=== PATIENT | female | born 1955 | race Caucasian/White ===

== ENCOUNTER 2021-01-13 19:21 | Emergency (ER) | payer SELFPAY ==
[~2021-01-13] VITALS: Ht 152 cm; Wt 43.0 kg
[2021-01-13] MEDS ORDERED: ATROPINE INJECTION 1 MG/10 ML SYR (ABBOTT) INJ ONE (19:28)
[2021-01-13] MEDS ORDERED: EPINEPHrine 0.1 MG/ML 10 ML (HOSPIRA) SYR IJ ONE (19:28)
[2021-01-13] MEDS ORDERED: ETOMIDATE IV SOLN 20 MG/10 ML VIAL IV ONE (19:28)
--- NOTE | 2021-01-13 19:42 | ED Respiratory ---
General Stated Complaint: SOB, POSSIBLE STROKE Source: patient, EMS Exam Limitations: clinical condition History of Present Illness Date Seen by Provider: Jan 13, 2021 Time Seen by Provider: 19:28 Initial Comments Patient is a 65-year-old who presents by EMS today with a chief complaint of respiratory distress. Initially the call was made for possible stroke. Patient and EMS report that the patient has had increasing cough and congestion and shortness of breath for the last couple of days. [place] and has not really established care. She has been seen at a clinic in [facility]. Patient has a long history of COPD/respiratory disease and was on oxygen at her previous home but has not been on oxygen since arriving in [place]. Patient continues to smoke. EMS reports the house was very disheveled and unkempt. Patient states that she has a headache, congestion, shortness of breath and cough. She has been having diarrhea. She is not Covid vaccinated. She does seem a little confused but on 5 L of oxygen her SPO2 is only 90% I suspect her confusion is more likely related to her degree of hypoxia. She is moving all of her extremities equally with good strength and has no numbness. No other obvious neurologic deficits are noted. EMS states that she has had a stroke in the past however. EMS also reports a temperature of 101. Patient is not a good historian with review of her past medical history family history or social history. She is re ally unable to provide much of a review of systems other than to endorse the above-stated complaints. All other review of systems reviewed and negative except as stated. Timing/Duration: yesterday Severity: severe Modifying Factors: Improves With Albuterol Inhaler Associated Symptoms: cough, fever/chills, muscle aches, nasal congestion, shortness of breath Allergies and Home Medications Allergies Coded Allergies: No Known Drug Allergies (Unverified , 01/13/21) Patient Home Medication List Home Medication List Reviewed: Yes Review of Systems Review of Systems Constitutional: see HPI Respiratory: cough, phlegm, short of breath Cardiovascular: no symptoms reported Gastrointestinal: diarrhea, nausea Genitourinary: no symptoms reported Musculoskeletal: muscle cramps Skin: no symptoms reported Psychiatric/Neurological: Headache Hematologic/Lymphatic: No Symptoms Reported All Other Systems Reviewed Negative Unless Noted: Yes Physical Exam Vital Signs - First Documented 01/13/21 01/13/21 19:21 22:26 Temp 38.6 Pulse 141 Resp 34 B/P (MAP) 139/88 (105) Pulse Ox 95 O2 Delivery Nasal Cannula O2 Flow Rate 5.00 FiO2 100 Capillary Refill : Height: '" Weight: lbs. oz. kg; BMI Method: General Appearance: WD/WN, moderate distress Eyes: Bilateral Eye Normal Inspection, Bilateral Eye PERRL, Bilateral Eye EOMI HEENT: other (Dry oral mucosa) Neck: normal inspection Respiratory: other (Increased work of breathing with tachypnea, diminished breath sounds throughout, scattered rhonchi noted. Patient's oxygen saturations are 90% on 5 L per nasal cannula at this time) Cardiovascular: tachycardia Gastrointestinal: normal bowel sounds, non tender, soft Extremities: normal range of motion, non-tender, normal inspection, no pedal edema, no calf tenderness Neurologic/Psychiatric: no motor/sensory deficits, alert, normal mood/affect, other (Oriented to self, birthdate. Unable to state where she is or what year it is) Skin: normal color, warm/dry Focused Exam Lactate Level 01/13/21 19:25: Lactic Acid Level 1.81 Lactic Acid Level Laboratory Tests Test 01/13/21 19:25 Lactic Acid Level 1.81 MMOL/L (0.50-2.00) Progress/Results/Core Measures Suspected Sepsis Recent Fever Within 48 Hours: Yes Infection Criteria Present: Suspected New Infection New/Unexplained Altered Menta: Yes Within 3hrs of presentation: Admin fluids, Blood cultures prior to ABX's, Lactate level SIRS Temperature: Pulse: Respiratory Rate: Laboratory Tests 01/13/21 19:25: White Blood Count 27.5H Blood Pressure / Mean: 01/13/21 19:25: Lactic Acid Level 1.81 Laboratory Tests 01/13/21 19:25: Creatinine 0.79, INR Comment 1.3, Platelet Count 390, Total Bilirubin 1.3H Results/Orders Lab Results Laboratory Tests Test 01/13/21 19:20 01/13/21 19:25 01/13/21 20:10 Range/Units Influenza Type A (RT-PCR) Not Detected Not Detecte Influenza Type B (RT-PCR) Not Detected Not Detecte SARS-CoV-2 RNA (RT-PCR) Not Detected Not Detecte White Blood Count 27.5 H 4.3-11.0 10^3/uL Red Blood Count 4.20 3.80-5.11 10^6/uL Hemoglobin 13.3 11.5-16.0 g/dL Hematocrit 39 35-52 % Mean Corpuscular Volume 93 80-99 fL Mean Corpuscular Hemoglobin 32 25-34 pg Mean Corpuscular Hemoglobin Concent 34 32-36 g/dL Red Cell Distribution Width 12.0 10.0-14.5 % Platelet Count 390 130-400 10^3/uL Mean Platelet Volume 9.6 9.0-12.2 fL Immature Granulocyte % (Auto) 6 % Neutrophils (%) (Auto) 84 H 42-75 % Lymphocytes (%) (Auto) 3 L 12-44 % Monocytes (%) (Auto) 7 0-12 % Eosinophils (%) (Auto) 0 0-10 % Basophils (%) (Auto) 0 0-10 % Neutrophils # (Auto) 23.2 H 1.8-7.8 10^3/uL Lymphocytes # (Auto) 0.7 L 1.0-4.0 10^3/uL Monocytes # (Auto) 1.8 H 0.0-1.0 10^3/uL Eosinophils # (Auto) 0.0 0.0-0.3 10^3/uL Basophils # (Auto) 0.1 0.0-0.1 10^3/uL Immature Granulocyte # (Auto) 1.7 H 0.0-0.1 10^3/uL Neutrophils % (Manual) 84 % Lymphocytes % (Manual) 5 % Monocytes % (Manual) 8 % Metamyelocytes % 1 % Band Neutrophils 2 % Blood Morphology Comment NORMAL Prothrombin Time 16.5 H 12.2-14.7 SEC INR Comment 1.3 0.8-1.4 Activated Partial Thromboplast Time 34 24-35 SEC D-Dimer 1.33 H 0.00-0.49 UG/ML Sodium Level 129 L 135-145 MMOL/L Potassium Level 4.1 3.6-5.0 MMOL/L Chloride Level 96 L 98-107 MMOL/L Carbon Dioxide Level 19 L 21-32 MMOL/L Anion Gap 14 5-14 MMOL/L Blood Urea Nitrogen 24 H 7-18 MG/DL Creatinine 0.79 0.60-1.30 MG/DL Estimat Glomerular Filtration Rate 73 BUN/Creatinine Ratio 30 Glucose Level 174 H 70-105 MG/DL Lactic Acid Level 1.81 0.50-2.00 MMOL/L Calcium Level 10.2 H 8.5-10.1 MG/DL Corrected Calcium 10.5 H 8.5-10.1 MG/DL Total Bilirubin 1.3 H 0.1-1.0 MG/DL Aspartate Amino Transf (AST/SGOT) 19 5-34 U/L Alanine Aminotransferase (ALT/SGPT) 19 0-55 U/L Alkaline Phosphatase 81 40-136 U/L C-Reactive Protein High Sensitivity 34.90 H 0.00-0.50 MG/DL Total Protein 7.6 6.4-8.2 GM/DL Albumin 3.6 3.2-4.5 GM/DL Procalcitonin 4.23 H <0.10 NG/ML Urine Color YELLOW Urine Clarity SL CLOUDY Urine pH 6.0 5-9 Urine Specific [place] 1.025 H 1.016-1.022 Urine Protein 2+ H NEGATIVE Urine Glucose (UA) NEGATIVE NEGATIVE Urine Ketones 1+ H NEGATIVE Urine Nitrite NEGATIVE NEGATIVE Urine Bilirubin NEGATIVE NEGATIVE Urine Urobilinogen 1.0 < = 1.0 MG/DL Urine Leukocyte Esterase NEGATIVE NEGATIVE Urine RBC (Auto) TRACE-I NEGATIVE Urine RBC 0-2 /HPF Urine WBC 0-2 /HPF Urine Crystals PRESENT H /LPF Urine Amorphous Sediment RARE NAVJOT URATES H /LPF Urine Bacteria TRACE /HPF Urine Casts NONE /LPF Urine Mucus SMALL H /LPF Urine Culture Indicated NO Blood Gas Puncture Site R RADIAL Blood Gas Patient Temperature 101 Arterial Blood pH 7.47 H 7.37-7.43 Arterial Blood Partial Pressure CO2 28 L 35-45 MMHG Arterial Blood Partial Pressure O2 52 L 79-93 MMHG Arterial Blood HCO3 20 L 23-27 MMOL/L Arterial Blood Total CO2 20.4 L 21.0-31.0 MMOL/L Arterial Blood Oxygen Saturation 83 L 94-100 % Arterial Blood Base Excess -3.3 L -2.5-2.5 MMOL/L Edwin Test NA Blood Gas Ventilator Setting NO Blood Gas Inspired Oxygen 5 L My Orders Orders - SADIA DAVIS MD Cbc With Automated Diff (01/13/21 19:36) Comprehensive Metabolic Panel (01/13/21 19:36) Blood Culture (01/13/21 19:36) Sputum Culture (01/13/21 19:36) Urinalysis (01/13/21 19:36) Urine Culture (01/13/21 19:36) Protime With Inr (01/13/21 19:36) Partial Thromboplastin Time (01/13/21 19:36) Chest 1 View, Ap/Pa Only (01/13/21 19:36) Ed Iv/Invasive Line Start (01/13/21 19:36) Ed Iv/Invasive Line Start (01/13/21 19:36) Vital Signs Adult Sepsis Patie Q15M (01/13/21 19:36) O2 (01/13/21 19:36) Remove Rings In Anticipation O (01/13/21 19:36) Lactic Acid Analyzer (01/13/21 19:36) Procalcitonin (Pct) (01/13/21 19:36) Arterial Blood Gas (01/13/21 19:36) Hs C Reactive Protein (01/13/21 19:36) Fibrin Degradation Products (01/13/21 19:36) Communication For Respiratory (01/13/21 19:38) Ns Iv 1000 Ml (Sodium Chloride 0.9%) (01/13/21 19:45) Acetaminophen Tablet (Tylenol Tablet) (01/13/21 19:45) Morphine Injection (Morphine Injection (01/13/21 20:06) Morphine Injection (Morphine Injection (01/13/21 20:08) Manual Differential (01/13/21 19:25) Covid 19 Inhouse Test (01/13/21 20:19) Influenza A And B By Pcr (01/13/21 20:19) Lorazepam Injection (Ativan Injection) (01/13/21 20:30) Lorazepam Injection (Ativan Injection) (01/13/21 20:24) Cefepime Injection (Maxipime Injection) (01/13/21 21:00) Ns Iv 1000 Ml (Sodium Chloride 0.9%) (01/13/21 21:00) Lorazepam Injection (Ativan Injection) (01/13/21 21:00) Aspirin Suppository (Aspirin Suppository (01/13/21 21:24) Aspirin Chewable Tablet (Baby Aspirin Ch (01/13/21 21:33) Epinephrine 1 Mg Injection (Adrenalin I (01/13/21 21:44) Ns (Ivpb) (Sodium Chloride 0.9%) (01/13/21 21:44) Epinephrine 1 Mg Injection (Adrenalin I (01/13/21 21:44) Medications Given in ED Current Medications Medications Dose Ordered Sig/Volodymyr Route Start Time Stop Time Status Last Admin Dose Admin Acetaminophen 1,000 mg ONCE ONCE PO 01/13/21 19:45 01/13/21 19:46 DC 01/13/21 20:30 1,000 MG Lorazepam 0.5 mg Q8HR PRN IVP 01/13/21 20:30 01/13/21 20:28 0.5 MG Vital Signs/I&O 01/13/21 01/13/21 01/13/21 01/13/21 19:21 19:22 20:19 20:30 Temp 38.6 38.4 Pulse 141 146 Resp 34 34 B/P (MAP) 139/88 (105) Pulse Ox 95 95 95 O2 Delivery Nasal Cannula Nasal Cannula O2 Flow Rate 5.00 5.00 70.00 01/13/21 22:26 Pulse 89 Resp 18 Pulse Ox 85 FiO2 100 Capillary Refill : Progress Note : Time: 20:51 Progress Note daughter Lissa Cameron [phone]; attemped to call. no answer Notified about 2109 of the patient's increasing agitation. Remains tachycardic in the 140s unable to obtain a pulse ox. Patient was given a little bit more Ativan seemed to calm down and then noted to bradycardia significantly from her 140s down into the 80s with increasing ST segments on telemetry. Patient subsequently respiratory and cardiac arrested. Immediately CPR was started patient was urgently intubated with a 7.5 ET tube under direct vision laryngoscopy.. Bilateral breath sounds auscultated CPR continued for about 3 to 4 minutes with 1 epinephrine given. We had return of circulation and a pulse in the 140s pressure of 110 systolic. Patient was given a fluid bolus. EKG was obtained and showed ST segment elevation inferiorly and anteriorly. I contacted Dr. Brown who is on-call for cardiology. He stated he would be into the emergency department to evaluate the patient. I also discussed the case with Dr. Singh. Patient subsequently bradycardia down again into a PEA rhythm. CPR started again. Multiple recurrent episodes of CPR with spontaneous return of circulation. Finally at about 0 the patient again lost a pulse about 15 minutes of CPR, patient was noted to be in a heart block. Multiple rounds of epinephrine, also a milligram of atropine were given under the direction of Dr. Brown as well as an epi drip had been started maxed out at 10 mics. I had multiple discussions with the daughter regarding ongoing resuscitative efforts. Eventually the daughter decided to discontinue CPR. Time of was called at 2201. ECG Initial ECG Impression Date: Jan 13, 2021 Initial ECG Impression Time: 21:22 Initial ECG Rate: 157 Initial ECG Rhythm: Normal Sinus Initial ECG Intervals qtc 515 Comment STEMI, ST segment elevation inferiorly and V3-5 Diagnostic Imaging Diagonstic Imaging: Xray Plain Films/CT/US/NM/MRI: chest Comments single view chest interpreted by me, large left upper lobe infiltrate Critical Care Note Critical Care Start Time: 19:28 Stop Time: 21:34 Total Time (minutes) 90 minutes critical care time in the evaluation and management of this patient with sepsis, large left upper lobe pneumonia. Time includes fluid resuscitation also includes management of subsequent respiratory and cardiac arrest with about 3 to 5 minutes of CPR, 1 mg of epinephrine, chest compressions and intubation. Critical care management time does not include the procedure. Also discussion with family members, discussion with cardiology services as well as discussion with Dr. Singh admitting physician and eICU. Departure Communication (Admissions) Time/Spoke to Admitting Phy: 21:[address] Singh, accepts patient for admission, requests EICU consult Time/Spoke to Consulting Phy: 21:[address] Brown made him aware of STEMI Impression Primary Impression: Sepsis Qualified Codes: A41.9 - Sepsis, unspecified organism; R65.20 - Severe sepsis without septic shock; J96.01 - Acute respiratory failure with hypoxia Additional Impressions: Pneumonia Qualified Codes: J18.9 - Pneumonia, unspecified organism Cardiac arrest STEMI (ST elevation myocardial infarction) Qualified Codes: I21.3 - ST elevation (STEMI) myocardial infarction of unspecified site Disposition: 20 Condition: Admissions Decision to Admit Reason: Admit from ER (General) Decision to Admit/Date: Jan 13, 2021 Time/Decision to Admit Time: 21:34 SADIA DAVIS MD Jan 13, 2021 19:42
[2021-01-13] MEDS ORDERED: ACETAMINOPHEN 500 MG TAB (TYLENOL) PO ONE (19:45)
[2021-01-13] MEDS ORDERED: NS IV 1000 ML 1,000 ML IV SCH ×2 (19:45→21:00)
[2021-01-13] MEDS ORDERED: morphine INJ 10 MG/ML 1ML (SYR OR VIAL) IVP STA (20:06)
[2021-01-13] MEDS ORDERED: morphine INJ 10 MG/ML 1ML (SYR OR VIAL) ONE (20:08)
[2021-01-13 20:12] LABS: BASOPHILS # (AUTO) 0.1 10^3/uL (0.0-0.1); BASOPHILS % (AUTO) 0 % (0-10); EOSINOPHILS % (AUTO) 0 % (0-10); HEMATOCRIT 39 % (35-52); HEMOGLOBIN 13.3 g/dL (11.5-16.0); LYMPHOCYTES # (AUTO) 0.7 10^3/uL (1.0-4.0); LYMPHOCYTES % (AUTO) 3 % (12-44); MEAN CORPUSCULAR HEMOGLOBIN 32 pg (25-34); MEAN CORPUSCULAR HGB CONC 34 g/dL (32-36); MEAN CORPUSCULAR VOLUME 93 fL (80-99); MEAN PLATELET VOLUME 9.6 fL (9.0-12.2); MONOCYTES # (AUTO) 1.8 10^3/uL (0.0-1.0); MONOCYTES % (AUTO) 7 % (0-12); NEUTROPHILS # (AUTO) 23.2 10^3/uL (1.8-7.8); NEUTROPHILS % (AUTO) 84 % (42-75); PLATELET COUNT 390 10^3/uL (130-400); WHITE BLOOD COUNT 27.5 10^3/uL (4.3-11.0)
[2021-01-13 20:19] VITALS: BP 124/79
[2021-01-13 20:19] LABS: FIBRIN DEGRADATION PRODUCTS 1.33 UG/ML (0.00-0.49); INR 1.3 (0.8-1.4); PROTHROMBIN TIME PATIENT 16.5 SEC (12.2-14.7)
[2021-01-13] MEDS ORDERED: LORazepam INJ 2 MG/ML (ATIVAN) VIAL ONE (20:24)
[2021-01-13 20:28] LABS: BILIRUBIN,URINE NEGATIVE (NEGATIVE); CLARITY,URINE SL CLOUDY; COLOR,URINE YELLOW; GLUCOSE, URINE (UA) NEGATIVE (NEGATIVE); KETONES,URINE 1+ (NEGATIVE); LEUKOCYTE ESTERASE ,URINE NEGATIVE (NEGATIVE); NITRITE,URINE NEGATIVE (NEGATIVE); PROTEIN,URINE 2+ (NEGATIVE)
[2021-01-13] MEDS ORDERED: LORazepam INJ 2 MG/ML (ATIVAN) VIAL IVP PRN ×2 (20:30→21:00)
[2021-01-13 20:31] LABS: ABG BASE EXCESS -3.3 MMOL/L (-2.5-2.5); ABG OXYGEN SATURATION 83 % (94-100); ABG PCO2 28 MMHG (35-45); ABG PH 7.47 (7.37-7.43); ABG PO2 52 MMHG (79-93); ABG TCO2 20.4 MMOL/L (21.0-31.0)
[2021-01-13 20:38] LABS: INSPIRED O2 5 L; PATIENT TEMP 101; VENTILATOR NO
[2021-01-13 20:39] LABS: ALBUMIN 3.6 GM/DL (3.2-4.5); BILIRUBIN,TOTAL 1.3 MG/DL (0.1-1.0); CALCIUM 10.2 MG/DL (8.5-10.1); CREATININE SERUM 0.79 MG/DL (0.60-1.30); POTASSIUM 4.1 MMOL/L (3.6-5.0); TOTAL PROTEIN 7.6 GM/DL (6.4-8.2)
--- NOTE | 2021-01-13 20:59 | Diagnostic Imaging Report ---
INDICATION: Shortness of breath EXAM: Portable chest at 8:47 PM FINDINGS: There is an infiltrate present in the central portion of the left lung. There are emphysematous changes in both lungs. IMPRESSION: 1. COPD. 2. Left perihilar pneumonia. Dictated by: Dictated on workstation # [id number]
[2021-01-13] MEDS ORDERED: CEFEPIME INJECTION 2,000 MG in WATER (STERILE) FOR INJECTION 20 ML IV ONE (21:00)
[2021-01-13 21:07] LABS: AMORPHOUS SEDIMENT,UR RARE AMOR URATES /LPF; BACTERIA,URINE TRACE /HPF; RBC,URINE 0-2 /HPF; WBC,URINE 0-2 /HPF
[2021-01-13 21:12] LABS: BAND NEUTROPHILS 2 %; LYMPHOCYTES % (MANUAL) 5 %; METAMYELOCYTES % 1 %; MONOCYTES % (MANUAL) 8 %; NEUTROPHILS % (MANUAL) 84 %; RBC MORPH NORMAL
[2021-01-13] MEDS ORDERED: ASPIRIN 300 MG (5 GR) SUPPOSITORY PR STA (21:24)
[2021-01-13] MEDS ORDERED: ASPIRIN 81 MG CHEW (CHILDREN'S ASA) ONE (21:33)
[2021-01-13] MEDS ORDERED: NS (IVPB) 250 ML ONE (21:44)
[2021-01-13] MEDS ORDERED: EPINEPHrine INJECTION 1 MG/ML AMP ONE ×2 (21:44)
[2021-01-13] MEDS ORDERED: CEFEPIME 2 GM/20 ML (MAXIPIME) VIAL ONE (23:49)
[2021-01-14 05:25] VITALS: BP 0/0
== END 2021-01-14 05:25 | disposition expired ==
LOC: ER 19:27 → EDSEX 19:27 → ER 01-14 05:25
DX: A41.9 Sepsis, unspecified organism (principal); J18.9 Pneumonia, unspecified organism; I46.9 Cardiac arrest, cause unspecified; I21.3 ST elevation (STEMI) myocardial infarction of unspecified site; Z20.822 Contact with and (suspected) exposure to COVID-19
CPT/HCPCS: 36415; 51702; 71045; 80053; 81000; 82805; 83605; 84145; 85007; 85027; 85379; 85610; 85730; 86141; 87040; 87070; 87077; 87088; 87184; 87185; 87205; 87636